=== PATIENT | male | born 1935 | race Caucasian/White ===

== ENCOUNTER 2023-03-02 15:19 | Outpatient (CLI) | payer BC | END 2023-03-02 23:59 | disposition home or self-care (01) | LOC: RAD 15:19 | PROVIDERS: ATTEND Otolaryngology | DX: R13.14 Dysphagia, pharyngoesophageal phase (principal); R49.0 Dysphonia; K21.9 Gastro-esophageal reflux disease without esophagitis | CPT/HCPCS: 74230 ==